=== PATIENT | male | born 1990 | race Caucasian/White ===

== ENCOUNTER 2021-07-08 14:26 | Emergency (ER) | payer SELFPAY ==
[2021-07-08 14:26] VITALS: BP 129/75; PULSE 92; RESP 16; TEMP 35.8; O2SAT 98; BMI 31.3
--- NOTE | 2021-07-08 15:39 | EX.ED.DYSGE1 ---
HPI History of Present Illness Chief Complaint: Cellulitis Informant: patient and spouse/S.O. Onset/Context/Timing Onset: Weeks Current Severity: Moderate Maximum Severity: Moderate Narrative Narrative: Patient present secondary to right foot infection. 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 He has been treating his right foot for athlete's foot for the past 4 weeks. He now has increased swelling and green drainage. He denies fever or chills. PFSH PFSH Medical History no medical history no medical history Home Medications cephalexin 500 mg PO Q6 #40 cap 07/08/21 [Rx Last Taken Unknown] fluconazole 150 mg PO QWEEK #1 tab 07/08/21 [Rx Last Taken Unknown] naproxen [Naprosyn] 500 mg PO BID PRN #20 tab 07/08/21 [Rx Last Taken Unknown] sulfamethoxazole-trimethoprim [Bactrim DS] 1 tab PO BID #20 tab 07/08/21 [Rx Last Taken Unknown] Allergy/AdvReac Type Severity Reaction Status Date / Time No Known Allergies Allergy Verified 07/08/21 14:29 Social History Smoking Status: Current every day smoker tobacco type: cigarettes ROS ROS ED Constitutional Constitutional ED: Denies chills or fever(s) Eyes Eyes: Denies change in vision ENT ENT ED: Denies sore throat Cardiovascular Cardiovascular: Denies chest pain Respiratory/Chest Respiratory/Chest: Denies cough or dyspnea Gastrointestinal Gastrointestinal: Denies abdominal pain, diarrhea, nausea or vomiting Musculoskeletal Musculoskeletal: Reports arthralgias; Denies back pain Integumentary Reports other Details: Right foot wound Neurologic Neurologic: Denies headache(s) or weakness Allergic/Immunologic Allergic/Immunologic ED: Denies urticaria EXAM Physical Exam Const Vital Signs: 07/08/21 14:26 07/08/21 19:23 Temperature 96.5 F L Temperature Source Temporal Pulse Rate 92 Respiratory Rate 16 16 Blood Pressure 129/75 H Blood Pressure Mean 93 Pulse Ox 98 Oxygen Delivery Method Room Air Positive well nourished and well developed General Appearance ED: well developed Eyes PERRL and EOMs intact bilaterally Neck supple Chest Wall inspection of chest normal and palpation of chest normal Resp normal respiratory effort and clear to auscultation bilaterally Cardio regular rate and regular rhythm Extremity Extremity Narrative: Mild edema to the right foot. Erythema and skin breakdown noted between the first and second toes and between the second third toes. Skin breakdown with green discharge on the plantar surface at the MTP joint of the first, second, and third toes. No tenderness over the midfoot. MDM MDM MDM Narrative Medical decision making narrative: Blood cultures and lab work obtained. Right foot x-rays ordered. Lab Data Attestation: I reviewed the patient's lab results. Labs: Laboratory Results - last 24 hr 07/08/21 07/08/21 07/08/21 15:20 15:55 15:55 WBC 11.5 H RBC 5.59 Hgb 16.5 Hct 48.9 MCV 87.5 MCH 29.5 MCHC 33.7 RDW Std Deviation 40.0 RDW Coeff of Jayden 12.7 Plt Count 215 MPV 11.5 Immature Gran % (Auto) 0.400 Neut % (Auto) 68.7 Lymph % (Auto) 19.5 [place] % (Auto) 8.9 Eos % (Auto) 2.1 Baso % (Auto) 0.4 Absolute Neuts (auto) 7.9 H Absolute Lymphs (auto) 2.24 Nucleated RBC % 0 ESR 9 Sodium 143 Cancelled Potassium 3.8 Cancelled Chloride 112 H Cancelled Carbon Dioxide 25.0 Cancelled Anion Gap 6 Cancelled BUN 11 Cancelled Creatinine 0.88 Cancelled Estim Creat Clear Calc 117.67 Cancelled Est GFR (MDRD) Af Amer 129 Cancelled Est GFR (MDRD) Non-Af 106 Cancelled BUN/Creatinine Ratio 12.4 Cancelled Glucose 92 Cancelled Calcium 8.5 Cancelled C-React Prot Ext Range 3.25 H Cancelled Radiography Diagnostic Testing: Clinical Impression(s) from Imaging Studies Foot X-Ray 07/08/21 16:08 IMPRESSION: No destructive bony process. Forefoot soft tissue swelling. Electronically Signed: Adonay Sibley MD ([place]) at 16:32 EST , Service support , Treatment and Re-Evaluation Comments:: White count mildly elevated at 11.5 with no significant left shift. Chemistry studies unremarkable. Sed rate normal at 9 and CRP only slightly elevated at 3.25. X-ray per my interpretation is unremarkable. Radiology does not feel there is any bony destruction. Test results discussed with patient and at bedside. Wound culture is ordered and wound is cleansed and dressed by nursing staff. Patient is treated with Bactrim and Keflex along with a dose of fluconazole. 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 He states he cannot be seen by podiatry here locally for another week and a half. In light of that I did give him Dr. Marie's phone number and asked him to call on Saturday to go ahead and schedule an appointment for soon as he is back in town. Prescription for 1 additional dose of fluconazole to be taken in 1 week is given. Prescriptions for Bactrim and Keflex given. Discharge Plan Triage Chief Complaint: Cellulitis ED Provider: Ana Huynh Dx/Rx/DC Orders Clinical Impression: Foot infection Instructions: ED Wound Check (Infection) Prescriptions: New naproxen [Naprosyn] 500 mg tablet 500 mg PO BID PRN (Reason: pain) Qty: 20 RF: 0 sulfamethoxazole-trimethoprim [Bactrim DS] 800-160 mg tablet 1 tab PO BID Qty: 20 RF: 0 cephalexin 500 mg capsule 500 mg PO Q6 Qty: 40 RF: 0 fluconazole 150 mg tablet 150 mg PO QWEEK Qty: 1 RF: 0 Primary Care Provider: Niranjan Rivera Referrals: Suhas Locke DPM [STAFF PHYSICIAN] - As soon as possible Niranjan Rivera MD [Primary Care Provider] - Disposition Disposition: Home, Self Care Discharge Date/Time: 07/08/21 19:25
--- NOTE | 2021-07-08 16:08 | RAD_ITS ---
STUDY: X-RAY - RIGHT FOOT CLINICAL: Male, 30 years old. Pain with walking, green drainage TECHNIQUE: 3 view(s) of the foot. COMPARISON: None. FINDINGS: Normal talus, calcaneus, and tarsal bones. Normal visualized subtalar, talonavicular, calcaneocuboid, tarsal and tarsometatarsal articulations. Normal metatarsi. There is degenerative arthrosis of the metatarsophalangeal joint of the hallux with a hallux valgus deformity. Ms. WOLFGANG FIGUEROA Normal tibial and fibular sesamoid bones. Normal interphalangeal joint of the great toe. Normal phalanges of the great toe. Normal second through fifth metatarsophalangeal joints. Normal interphalangeal joints and phalanges of the lesser toes. Soft tissue swelling of the forefoot. RAD/Foot min 3 Views IMPRESSION: No destructive bony process. Forefoot soft tissue swelling. Electronically Signed: Adonay Sibley MD ([place]) at 16:32 EST , Service support ,
[2021-07-08 16:18] LABS: Erythrocyte Sedimentation Rate 9 mm/hr (0-20)
[2021-07-08 16:19] LABS: Absolute Lymphocyte Count 2.24 X10^3/uL (0.83-4.51); Absolute Neutrophil Count 7.9 X10^3/uL (2.0-7.7); Basophil# 0.05 X10^3/uL; Basophil% 0.4 % (0-1); Eosinophil# 0.24 X10^3/uL; Eosinophils% 2.1 % (0-5); Hematocrit 48.9 % (40-54); Hemoglobin 16.5 g/dL (13.0-16.5); Lymphocyte # 2.24 X10^3/ul (0.83-4.51); Lymphocyte % 19.5 % (19-41); Mean Corp Hgb Conc 33.7 g/dL (32-36); Mean Corpuscular Hgb 29.5 pg (27.0-32.0); Mean Corpuscular Volume 87.5 fL (80-94); Mean Platelet Vol. 11.5 fl (6.2-12.0); Monocyte# 1.03 X10^3/uL; Monocyte% 8.9 % (0-10); NRBC Flagged by Analyzer 0 % (0-5); Neutrophil % 68.7 % (47-70); Platelet Count 215 K/mm3 (150-450); RBC Distribution Width CV 12.7 % (11.6-14.6); Red Blood Count 5.59 M/mm3 (4.6-6.2); White Blood Count 11.5 K/mm3 (4.4-11.0)
[2021-07-08 17:49] LABS: Anion Gap 6 (5-15); BUN 11 mg/dL (7-18); BUN/Creat Ratio 12.4 RATIO (10-20); CRP 3.25 mg/L (0.0-3.0); Calcium,Total 8.5 mg/dL (8.5-10.1); Chloride 112 mmol/L (98-107); Creatinine, Serum 0.88 mg/dL (0.70-1.30); EST Glomerular Filtration Rate 106 mL/min (>60); Est Glom Filt Rate - Afr Amer 129 mL/min (>60); Estimated Creatinine Clearance 117.67 ml/min; Glucose 92 mg/dL (74-106); Potassium 3.8 mmol/L (3.5-5.1); Sodium Level 143 mmol/L (136-145)
[2021-07-08] MEDS: FLUCONAZOLE 150 MG TABLET PO (19:08)
[2021-07-08] MEDS: Cephalexin 250 MG Capsule 500 MG PO (19:08)
[2021-07-08] MEDS: Smz/Tmp Ds Tablet 1 TABLET PO (19:08)
[2021-07-08 19:23] VITALS: RESP 16
== END 2021-07-08 19:25 | disposition home or self-care (01) ==
PROVIDERS: Emergency Provider Emergency Medicine; PCP Family Medicine
DX: L08.9 Local infection of the skin and subcutaneous tissue, unspecified (principal); F17.210 Nicotine dependence, cigarettes, uncomplicated
CPT/HCPCS: 73630; 80048; 85025; 85652; 86140; 87040; 99285; A4216